=== PATIENT | female | born 1970 | race Two or more races ===

== ENCOUNTER 2016-12-19 10:30 | Emergency (ER) | payer BC, OTHER ==
[~2016-12-19] VITALS: Ht 152.4 cm; Wt 61.2 kg
[~2016-12-19 10:30] MED LIST: NO REPORTABLE MEDS
[2016-12-19 10:43] VITALS: BP 129/71
[2016-12-19 11:04] LABS: KETONES,URINE Negative (NEGATIVE); LEUKOCYTE ESTERASE ,URINE Negative (NEGATIVE)
[2016-12-19 11:06] LABS: ADD UA MICROSCOPIC YES
[2016-12-19 11:15] LABS: ADD URINE CULTURE NO; WBC,URINE NONE SEEN /HPF (0-3)
[2016-12-19 11:16] LABS: PREGNANCY TEST URINE QUAL NEGATIVE (NEGATIVE)
[2016-12-19] MEDS ORDERED: KETOROLAC TROMETHAMINE INJ 30 MG/ML VIAL ONE (11:31)
[2016-12-19] MEDS: KETOROLAC TROMETHAMINE INJ 60 MG/2 ML VIAL IM ONE (11:44)
[2016-12-19 16:37] LABS: BASOPHILS % (AUTO) 0.4 % (0.0-2.0); DIFF TOTAL % 100 %; EOSINOPHILS # (AUTO) 0.1 /CMM (0.0-0.7); EOSINOPHILS % (AUTO) 1.2 % (0.0-6.0); HEMATOCRIT 38 % (33-45); HEMOGLOBIN 12.5 g/dL (11.5-14.8); LYMPHOCYTES % (AUTO) 26.1 % (20.0-44.0); MEAN CORPUSCULAR HEMOGLOBIN 29 PG (26.0-33.0); MEAN CORPUSCULAR HGB CONC 33 g/dl (31.0-36.0); MEAN CORPUSCULAR VOLUME 87 fL (82-100); MONOCYTES # (AUTO) 0.7 /CMM (0.1-1.30); MONOCYTES % (AUTO) 9.5 % (2.0-12.0); NEUTROPHILS # (AUTO) 4.7 /CMM (1.8-8.9); NEUTROPHILS % (AUTO) 62.8 % (43.0-81.0); PLATELET COUNT (AUTO) 403 /CMM (150-450); RED BLOOD CELL COUNT(AUTO) 4.38 MIL/uL (4.0-5.2); WHITE BLOOD COUNT (AUTO) 7.5 K/uL (4.3-11.0)
[2016-12-19 17:16] LABS: BILIRUBIN,TOTAL 0.4 mg/dL (0.2-1.0); CALCIUM, SERUM 8.8 mg/dL (8.5-10.1); CREATININE 0.6 mg/dL (0.6-1.3); POTASSIUM 3.7 mmol/L (3.5-5.1); TOTAL PROTEIN, SERUM 7.7 g/dL (6.4-8.2)
== END 2016-12-19 12:00 | disposition home or self-care (01) ==
LOC: ER 10:32
DX: N39.0 Urinary tract infection, site not specified (principal)
CPT/HCPCS: 36415; 80053-TC; 81000-TC; 82150-TC; 83690-TC; 84703-TC; 85025-TC; 87086-TC; A4606; J1885; Z7610

== ENCOUNTER 2016-12-19 14:27 | Outpatient (CLI) | payer BC, OTHER | END 2016-12-19 23:59 | disposition home or self-care (01) | LOC: LAB 14:27 | PROVIDERS: ATTEND Family Medicine | DX: N88.8 Other specified noninflammatory disorders of cervix uteri (principal); N39.0 Urinary tract infection, site not specified | CPT/HCPCS: 76700-TC; 76856-TC ==

== ENCOUNTER 2017-02-13 08:11 | Outpatient (CLI) | payer BC, OTHER | END 2017-02-13 23:59 | disposition home or self-care (01) | LOC: LAB 08:11 | PROVIDERS: ATTEND Family Medicine | DX: R94.7 Abnormal results of other endocrine function studies (principal) | CPT/HCPCS: 36415; 84146 ==

== ENCOUNTER 2017-02-27 13:56 | Outpatient (CLI) | payer BC, OTHER | END 2017-02-27 23:59 | disposition home or self-care (01) | LOC: LAB 13:56 | PROVIDERS: ATTEND Family Medicine | DX: R94.7 Abnormal results of other endocrine function studies (principal) | CPT/HCPCS: 36415; 82670; 83001; 83002; 84439-TC; 84443-TC ==

== ENCOUNTER 2017-03-10 08:51 | Outpatient (CLI) | payer BC, OTHER ==
[2017-02-27 16:05] LABS: THYROID STIMULATING HORMONE 1.401 uIU/mL (0.358-3.74)
[2017-02-28 09:34] LABS: ESTRADIOL 53.3 pg/mL (.); FOLLICLE STIMULATION HORMONE 8.4 mIU/mL (.); LUTEINIZING HORMONE 5.4 mIU/mL (.)
[2017-03-11] MEDS ORDERED: GADOVERSETAMIDE 5 MMOL/10 ML VIAL IJ ONE (14:21)
== END 2017-03-10 23:59 | disposition home or self-care (01) ==
LOC: MRI 08:51
PROVIDERS: ATTEND Family Medicine
DX: E22.1 Hyperprolactinemia (principal); R94.7 Abnormal results of other endocrine function studies
CPT/HCPCS: 36415; 70542-TC; 82670; 83001; 83002; 84439-TC; 84443-TC; A9579

== ENCOUNTER 2018-07-09 08:15 | Outpatient (CLI) | payer BC ==
[2018-07-09 08:58] LABS: BILIRUBIN,TOTAL 0.3 mg/dL (0.2-1.0); CALCIUM, SERUM 8.9 mg/dL (8.5-10.1); CREATININE 0.6 mg/dL (0.6-1.3); POTASSIUM 4.1 mmol/L (3.5-5.1)
[2018-07-09 09:07] LABS: FREE T4 (FREE THYROXINE) 0.93 ng/dL (0.76-1.46); THYROID STIMULATING HORMONE 1.408 uIU/mL (0.358-3.74)
== END 2018-07-09 23:59 | disposition home or self-care (01) ==
LOC: LAB 08:15
PROVIDERS: ATTEND Family Medicine
DX: N92.6 Irregular menstruation, unspecified (principal); R89.1 Abnormal level of hormones in specimens from other organs, systems and tissues
CPT/HCPCS: 80053-TC; 84146; 84439-TC; 84443-TC; 87086-TC; 87491; 87591

== ENCOUNTER 2018-07-30 12:41 | Emergency (ER) | payer BC ==
[~2018-07-30] VITALS: Ht 154.9 cm; Wt 54.4 kg
--- NOTE | 2018-07-30 13:00 | NUR ---
PT CAME IN WITH C/O TINGLING SENSATION IN THE HEAD AND BLURRY VISION. SEEN BY CORPORATE QUALITY MANAGER FOR EVAL. VSS. SAFETY AND COMFORT MEASURES PROVIDED. WILL MONITOR.
[2018-07-30] MEDS ORDERED: KETOROLAC TROMETHAMINE INJ 30 MG/ML VIAL IM ONE (14:00)
[2018-07-30 14:04] LABS: BASOPHILS % (AUTO) 0.4 % (0.0-2.0); EOSINOPHILS % (AUTO) 1.9 % (0.0-6.0); HEMATOCRIT 36 % (33-45); HEMOGLOBIN 12.5 g/dL (11.5-14.8); LYMPHOCYTES # (AUTO) 1.8 /CMM (0.8-4.8); MEAN CORPUSCULAR HGB CONC 35 g/dl (31.0-36.0); MEAN CORPUSCULAR VOLUME 87 fL (82-100); MONOCYTES # (AUTO) 0.6 /CMM (0.1-1.30); MONOCYTES % (AUTO) 10.3 % (2.0-12.0); NEUTROPHILS # (AUTO) 3.8 /CMM (1.8-8.9); NEUTROPHILS % (AUTO) 59.4 % (43.0-81.0); PLATELET COUNT (AUTO) 282 /CMM (150-450); RDW COEFFICIENT OF VARIATION 13.8 (11.5-15.0); RED BLOOD CELL COUNT(AUTO) 4.14 MIL/uL (4.0-5.2); WHITE BLOOD COUNT (AUTO) 6.3 K/uL (4.3-11.0)
[2018-07-30 14:06] LABS: APPEARANCE,URINE Slightly Cloudy (CLEAR); BILIRUBIN,URINE Negative (NEGATIVE); BLOOD, URINE Moderate Ery/uL (NEGATIVE); COLOR,URINE Yellow (YELLOW); KETONES,URINE Negative (NEGATIVE); LEUKOCYTE ESTERASE ,URINE Negative (NEGATIVE); NITRITE, URINE Negative (NEGATIVE); PROTEIN,URINE Negative (NEGATIVE); UGLUCOSE Negative (NEGATIVE); UROBILINOGEN,URINE 0.2 EU/dL (0.2)
[2018-07-30 14:10] LABS: BACTERIA,URINE Few /HPF (None Seen); SQUAMOUS EPITHELIAL CELL,UR Few /HPF (None Seen)
[2018-07-30 14:11] LABS: CALCIUM, SERUM 8.4 mg/dL (8.5-10.1); CREATININE 0.5 mg/dL (0.6-1.3)
--- NOTE | 2018-07-30 14:15 | NUR ---
TEXTED DR. JOYA FOR MRI APPROVAL.
[2018-07-30] MEDS ORDERED: KETOROLAC TROMETHAMINE INJ 30 MG/ML VIAL ONE (14:34)
[2018-07-30] MEDS ORDERED: IV NS 0.9% 1,000 ML BAG IV ONE (16:00)
[2018-07-30 16:55] VITALS: BP 128/90
--- NOTE | 2018-07-30 16:57 | NUR ---
Patient discharged to home in stable condition. Written and verbal after care instructions given. Patient verbalizes understanding of instruction.IV removed. Catheter intact and site benign. Pressure and 4x4 applied to site. No bleeding noted.
== END 2018-07-30 16:58 | disposition home or self-care (01) ==
LOC: ER 12:43
DX: R51 Headache (principal); N94.6 Dysmenorrhea, unspecified; E22.1 Hyperprolactinemia; F41.9 Anxiety disorder, unspecified
CPT/HCPCS: 36415; 80048; 81001; 84703; 85025; 96372; 99284; A4606; J1885; J7030 ×2; Z7610; 81000-TC

== ENCOUNTER 2018-08-05 09:11 | Outpatient (CLI) | payer BC ==
[2018-08-05 10:12] LABS: CREATININE 0.8 mg/dL (0.6-1.3); UREA NITROGEN, BLOOD 20 mg/dL (7-18)
== END 2018-08-05 23:59 | disposition home or self-care (01) ==
LOC: LAB 09:11
PROVIDERS: ATTEND Family Medicine
DX: R89.1 Abnormal level of hormones in specimens from other organs, systems and tissues (principal); N92.6 Irregular menstruation, unspecified
CPT/HCPCS: 36415; 82565-TC; 84520-TC; 84702-TC

== ENCOUNTER 2018-08-06 09:48 | Outpatient (CLI) | payer BC ==
[2018-08-06] MEDS ORDERED: GADODIAMIDE 5 MMOL/10 ML VIAL IJ ONE (09:49)
[2018-08-06] MEDS ORDERED: GADODIAMIDE 2.5 MMOL/5 ML VIAL IJ ONE (09:49)
== END 2018-08-06 23:59 | disposition home or self-care (01) ==
LOC: MRI 09:48
PROVIDERS: ATTEND Family Medicine
DX: R89.1 Abnormal level of hormones in specimens from other organs, systems and tissues (principal)
CPT/HCPCS: 70542-TC

== ENCOUNTER 2018-10-01 09:59 | Outpatient (CLI) | payer BC | END 2018-10-01 23:59 | disposition home or self-care (01) | LOC: US 09:59 | PROVIDERS: ATTEND Family Medicine | DX: Z11.3 Encounter for screening for infections with a predominantly sexual mode of transmission (principal); N93.0 Postcoital and contact bleeding | CPT/HCPCS: 76856-TC ==

== ENCOUNTER 2018-10-17 10:27 | Emergency (ER) | payer BC, OTHER ==
[~2018-10-17] VITALS: Ht 154.9 cm; Wt 55.3 kg
--- NOTE | 2018-10-17 11:05 | NUR ---
PT C/O LT SHOULDER INJURY WHILE WORKING TODAY. ALERT AND ORIENTED X 4, VERBALLY RESPONSIVE AND ABLE TO MAKE NEEDS KNOWN. ON ROOM AIR AND TOLERATED WELL, 02 SAT 98%, BREATHING EVENLY, AND UNLABORED. KEPT COMFORTABLE, WILL CONTINUE TO MONITOR ACCORDINGLY.
--- NOTE | 2018-10-17 11:48 | NUR ---
Patient discharged to home in stable condition. Written and verbal after care instructions given. Patient verbalizes understanding of instruction.
[2018-10-17 11:50] VITALS: BP 128/89
== END 2018-10-17 11:53 | disposition home or self-care (01) ==
LOC: ER 10:28
DX: S46.812A Strain of other muscles, fascia and tendons at shoulder and upper arm level, left arm, initial encounter (principal); S29.012A Strain of muscle and tendon of back wall of thorax, initial encounter; X50.1XXA Overexertion from prolonged static or awkward postures, initial encounter; Y93.89 Activity, other specified; Y92.89 Other specified places as the place of occurrence of the external cause; Y99.8 Other external cause status
CPT/HCPCS: 73030; 99283; A4606; Z7610

== ENCOUNTER 2018-10-29 07:55 | Emergency (ER) | payer BC, OTHER ==
[~2018-10-29] VITALS: Ht 154.9 cm; Wt 54.4 kg
[2018-10-29 07:59] VITALS: BP 114/75
--- NOTE | 2018-10-29 08:05 | NUR ---
HERE FOR MEDICAL CLEARANCE FOR WORK S/P INJURY LEFT SHOULDER - NO COMPLAINTS
--- NOTE | 2018-10-29 08:10 | NUR ---
SEEN AND EVAL BY DR WAITE
== END 2018-10-29 08:12 | disposition home or self-care (01) ==
LOC: ER 07:55
DX: M54.9 Dorsalgia, unspecified (principal)
CPT/HCPCS: 99281; Z7610; Z7502